=== PATIENT | female | born 1945 | race Caucasian/White ===

== ENCOUNTER 2018-03-13 02:45 | Emergency (ER) | payer MEDICARE, OTHER ==
[~2018-03-13] VITALS: Ht 154.9 cm; Wt 83.0 kg
[2018-03-13] MEDS ORDERED: normal saline 1000ml 1,000 ML IV ONE (03:11)
[2018-03-13] MEDS ORDERED: normal saline 1000ML IV soln IVB ONE (03:15)
[2018-03-13] MEDS ORDERED: ipratropium/albuterol 3ml nebule NEB ONE (03:25)
[2018-03-13] MEDS ORDERED: ZOL50T PO (03:28)
[2018-03-13 03:36] LABS: BASOPHILS % (AUTO) 0.3 % (0-1); EOSINOPHILS # (AUTO) 0.4 X10'3 (0-0.9); EOSINOPHILS % (AUTO) 3.3 % (0-6); HEMATOCRIT 43.4 % (35.0-45.0); HEMOGLOBIN 14.5 g/dl (12.0-16.0); LYMPHOCYTES # (AUTO) 1.6 X10'3 (1.1-4.8); MEAN CORPUSCULAR HEMOGLOBIN 29.4 PG (27.0-31.0); MEAN CORPUSCULAR HGB CONC 33.5 % (33.0-36.5); MEAN CORPUSCULAR VOLUME 87.8 FL (78-98); MEAN PLATELET VOLUME 7.6 FL (7.4-10.4); MONOCYTES # (AUTO) 0.5 X10'3 (0-0.9); MONOCYTES % (AUTO) 3.9 % (2-12); NEUTROPHILS # (AUTO) 10.7 X10'3 (1.8-7.7); NEUTROPHILS % (AUTO) 80.5 % (42-75); PLATELET COUNT 318 X10'3 (140-440); RED BLOOD COUNT 4.94 X10'6 (4.20-5.60); RED CELL DISTRIBUTION WIDTH 13.6 % (11.5-14.5); WHITE BLOOD COUNT 13.2 X10'3 (4.5-11.0)
[2018-03-13 03:47] LABS: INR 0.9 INR; PARTIAL THROMBOPLASTIN TIME 25 SECONDS (22-32); PROTHROMBIN TIME 9.8 SECONDS (9.0-12.0)
[2018-03-13 03:51] LABS: ALANINE AMINOTRANSFERASE 18 U/L (12-78); ALBUMIN 4.2 G/DL (3.4-5.0); ALBUMIN/GLOBULIN RATIO 1.3 (1.1-1.5); ALKALINE PHOSPHATASE 103 IU/L (46-116); ANION GAP 9 (8-16); ASPARTATE AMINO TRANSFERASE 10 U/L (10-37); BILIRUBIN,TOTAL 0.4 MG/DL (0.1-1.0); BLOOD UREA NITROGEN 21 MG/DL (7-18); BUN/CREATININE RATIO 19.3 (6.6-38.0); CALCIUM 9.2 MG/DL (8.5-10.1); CHLORIDE 106 MMOL/L (99-107); CREATININE 1.09 MG/DL (0.40-0.90); GLUCOSE 116 MG/DL (70-104); MAGNESIUM 2.1 MG/DL (1.5-2.4); POTASSIUM 4.1 MMOL/L (3.5-5.1); SODIUM 143 MMOL/L (135-145); TOTAL CARBON DIOXIDE 27.9 MMOL/L (24-32); TOTAL PROTEIN 7.5 G/DL (6.4-8.2); eGFR 49 ML/MIN
[2018-03-13] MEDS ORDERED: AMLO5TAB4 PO (04:13)
[2018-03-13 04:14] VITALS: BP 192/95
[2018-03-13] MEDS ORDERED: ALBU6.7H INH (04:14)
[2018-03-13] MEDS ORDERED: azithromycin 250mg tablet PO ONE (04:15)
[2018-03-13] MEDS ORDERED: amLODIPine 5mg tablet PO ONE (04:15)
[2018-03-13] MEDS ORDERED: dexamethasone 4mg tablet PO ONE (04:15)
[2018-03-13] MEDS ORDERED: HYDR-3965 PO (04:18)
[2018-03-13] MEDS ORDERED: MORPHINE 2MG in 2ml NS syringe IV PRN (04:20)
[2018-03-13] MEDS ORDERED: ketorolac tromethamine 15mg/ml inj. IV ONE (04:20)
== END 2018-03-13 04:25 | disposition home or self-care (01) ==
LOC: ER 02:45
DX: J18.9 Pneumonia, unspecified organism (principal); I10 Essential (primary) hypertension; J44.1 Chronic obstructive pulmonary disease with (acute) exacerbation
CPT/HCPCS: 36415; 71045; 80053; 83605; 83735; 84145; 84484; 85025; 85610; 85730; 87040; 94640; 94760; 96361; 96374; 99285; J1885; J7030; J8540

== ENCOUNTER 2019-10-01 13:32 | Emergency (ER) | payer MEDICARE, OTHER ==
[~2019-10-01] VITALS: Ht 154.9 cm; Wt 81.8 kg
[~2019-10-01 13:32] MED LIST: ALBU6.7H9 INH; AMLO5TAB4 PO; SERT-153 PO
[2019-10-01] MEDS ORDERED: ondansetron/PF 4mg/2ml inj IV ONE (13:55)
[2019-10-01] MEDS ORDERED: morphine 4 MG/ML inj SYRINge IV ONE (13:55)
[2019-10-01] MEDS ORDERED: HYDR-4384 PO (16:03)
[2019-10-01] MEDS ORDERED: HYDROcodone/acetaminophen 5mg/325mg tablet PO ONE (16:35)
[2019-10-01 16:50] VITALS: BP 119/95
== END 2019-10-01 16:53 | disposition home or self-care (01) ==
LOC: ER 13:32
DX: S42.201A Unspecified fracture of upper end of right humerus, initial encounter for closed fracture (principal); J45.909 Unspecified asthma, uncomplicated; Z98.890 Other specified postprocedural states; Z79.899 Other long term (current) drug therapy; W18.30XA Fall on same level, unspecified, initial encounter; Y93.89 Activity, other specified; Y92.89 Other specified places as the place of occurrence of the external cause; Y99.9 Unspecified external cause status
CPT/HCPCS: 73030; 73200; 96374; 96375; 99284; J2270; J2405